=== PATIENT | female | born 1975 | race Caucasian/White ===

== ENCOUNTER → 2019-11-17 | Day surgery (SDC) | payer BC ==
[2019-11-15 09:18] VITALS: BMI 31.5
[~2019-11-17] MED LIST: BUPIVACAINE HCL/PF 0.5% (5MG/ML) 10 ML VIAL IJ ONE; DEXAMETHASONE SOD PHOSPHATE 4 MG/1 ML VIAL ONE; GLYCOPYRROLATE 0.2 MG/1 ML VIAL ONE; KETOROLAC TROMETHAMINE 30 MG/1 ML VIAL ONE; MIDAZOLAM HCL 2 MG/2 ML SINGLE DOSE VIAL ONE; NEOSTIGMINE METHYLSULFATE 0.5 MG/ML - 10 ML MDV ONE; ONDANSETRON 4 MG/2 ML VIAL IVPUSH PRN; PROMETHAZINE HCL 25 MG/1 ML VIAL IVPB PRN; PROPOFOL 20 ML ONE; ROCURONIUM BROMIDE 50 MG/5 ML SYRINGE ONE; oxyCODONE HCL 5 MG TABLET PO PRN
--- NOTE | 2019-11-17 13:45 | HP ---
Admitting History and Physical - Admission Chief Complaint: Desires permanent sterilization, DUB History of Present Illness: 44yo here for LSC b/l salpingectomy, DUB Notes regular cycles but heavy for 1-2 days. Declined LARCs; certain she would like permanent sterilization and no further childbearing. 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: Alzheimer's, CVA, Dementia, Migraine, Multiple Sclerosis, Peripheral Neuropathy, Parkinson's, Seizure, Syncope, TIA, Vertigo, Other Cardiovascular: No: AFIB, Aneurysm, Aortic Insufficiency, Aortic Stenosis, CAD, CHF, Deep Vein Thrombosis, HTN, Hyperlipdemia, PA, Mitral Insufficiency, Mitral Stenosis, Murmur, Pulmonary Hypertension, Other Pulmonary: No: Asthma, Bronchitis, Cancer, COPD, O2 Dependent, Pneumonia, Previously Intubated, Pulmonary Embolus, Pulmonary Fibrosis, Sleep Apnea, Other Gastrointestinal: No: Ascites, Cancer, Constipation, Crohn's Disease, Diverticulitis, Diverticulosis, Esophageal Varices, Gastritis, GERD, GI Bleed, Hemorrhoids, Hiatal Hernia, Inflamatory Bowel Disease, Irritable Bowel Disease, Pancreatitis, Peptic Ulcer Disease, Ulcerative Colitis, Other Hepatobiliary: No: Cirrhosis, Cholelithiasis, Cholecystitis, Choledocholithiasis , Hepatitis A, Hepatitis B, Hepatitis C, Other Reproductive: No: Ectopic , Endometriosis, Fibroids, PID, Polycystic Ovary Syndrome, Postmenopausal, Other ...LMP: 11/09/19 ...: No Heme/Onc: No: Anemia, B12 Deficiency, Bleeding Disorder, Cancer, Current Chemotherapy, Current Radiation Therapy, Hemochromatosis, Hypercoaguable State, Myeloproliferative Synd, Sickle Cell Disease, Sickle Cell Trait, Thrombocytopenia, Other Infectious Disease: No: AIDS, C-Diff, Herpes Zoster, HIV, MRSA, STD's, Tuberculosis, VREF, Other Psych: No: Addictions, Anxiety, Bipolar, Depression, Panic, Psychosis, Schizophrenia, Other Musculoskeletal: No: Bursitis, Chronic low back pain, Hemiparesis, Hemiplegia, Osteoarthritis, Paraplegia, Other - Past Surgical History Past Surgical History: Yes: None - Smoking History Smoking history: Never smoked - Alcohol/Substance Use Hx Alcohol Use: No Home Medications - Allergies Allergies/Adverse Reactions: Allergies Allergy/AdvReac Type Severity Reaction Status Date / Time No Known Allergies Allergy Verified 11/17/19 12:07 - Home Medications Home Medications: Ambulatory Orders Ibuprofen 600 mg PO Q6H PRN #30 tablet 11/17/19 Review of Systems - Review of Systems Constitutional: denies: No Symptoms, Chills, Diaphoresis, Fever, Lethargy, Loss of Appetite, Malaise, Night Sweats, Unintentional Wgt. Loss, Weakness, Other Cardiovascular: denies: No Symptoms, Chest Pain, Edema, Palpitations, Shortness of Breath, Other Respiratory: denies: No Symptoms, Cough, Exercise Intolerance, Hemoptysis, Orthopnea, PND, Snoring, SOB, SOB on Exertion, Wheezing, Other Physical Examination Vital Signs: Vital Signs Temperature 98.6 F 11/17/19 12:30 Pulse Rate 74 11/17/19 12:30 Respiratory Rate 16 11/17/19 12:30 Blood Pressure 109/70 11/17/19 12:30 O2 Sat by Pulse Oximetry (%) 98 11/17/19 12:30 Constitutional: Yes: Well Nourished, No Distress, Calm Eyes: Yes: WNL, Conjunctiva Clear, EOM Intact HENT: Yes: WNL, Atraumatic, Normocephalic Neck: Yes: WNL, Supple, Trachea Midline Cardiovascular: Yes: WNL, Regular Rate and Rhythm Respiratory: Yes: WNL, Regular, CTA Bilaterally Gastrointestinal: Yes: WNL, Normal Bowel Sounds Musculoskeletal: Yes: WNL Extremities: Yes: WNL Edema: No Integumentary: Yes: WNL Neurological: Yes: WNL, Alert, Oriented ...Motor Strength: WNL Psychiatric: Yes: WNL Problem List - Problems (1) Sterilization Code(s): Z30.2 - ENCOUNTER FOR STERILIZATION (2) DUB (dysfunctional uterine bleeding) Code(s): N93.8 - OTHER SPECIFIED ABNORMAL UTERINE AND VAGINAL BLEEDING Assessment/Plan 44yo here for LSC b/l salpingectomy for sterilization, D&C hysteroscopy for DUB NPO, IVFS Risks and alternatives reviewed again with patient- including bleeding, infection and injury to bladder/bowel/adnexa/vessels/nerves; declined LARCs. Leyda Hutchinson All questions answered; consents signed Proceed to OR Lino Damian MD
--- NOTE | 2019-11-17 15:03 | OP ---
Operative Note - Note: Operative Date: 11/17/19 Pre-Operative Diagnosis: Desires Permanent Sterilization, Dysfunctional Uterine Bleeding Operation: Laparoscopic Bilateral Salpingectomy, Diagnostic Hysteroscopy, Dilation & Curettage Findings: Normal Uterus, normal tubes and ovaries, fluffy endometrium no masses within the endometrial cavity Post-Operative Diagnosis: Same as Pre-op Surgeon: Malinda Damian Materials Intern: Zuly Orozco Anesthesia: General Estimated Blood Loss (mls): 25 Drains, Volume Out (mls): 600 (clear urine) Operative Report Dictated: Yes
[2019-11-17 18:15] VITALS: BP 109/67; PULSE 83; TEMP 97.6
--- NOTE | 2019-11-17 20:19 | OP ---
DATE OF OPERATION: 11/17/2019 PREOPERATIVE DIAGNOSIS: Desires permanent sterilization, dysfunctional uterine bleeding. POSTOPERATIVE DIAGNOSIS: Desires permanent sterilization, dysfunctional uterine bleeding. PROCEDURE: Laparoscopic bilateral salpingectomy. Diagnostic hysteroscopy. Dilation and curettage. ANESTHESIA: General. INTRAVENOUS FLUIDS: Per anesthesia record. ESTIMATED BLOOD LOSS: 25. URINE OUTPUT: 600 mL of clear urine. SURGEON: Malinda Damian MD. PHYSIOTHERAPY AIDE: RASHIDA Fay. FINDINGS: Normal uterus, normal tubes, normal ovaries. Fluffy endometrium. No masses within the endometrial canal. COMPLICATIONS: None. CONDITION: Stable to recovery room. DESCRIPTION OF PROCEDURE: After appropriate consents were signed, patient was taken to the operating room. General anesthesia was administered. She was placed in the dorsal lithotomy position. The abdomen and vaginal field were prepped and draped in the normal sterile fashion. Sterile Hutchinson catheter was inserted into the bladder. Timeout was performed confirming correct patient and procedure. The umbilicus was injected with Marcaine. A 15-blade was used to make an incision to accommodate the 5-mm laparoscope, which was introduced under direct visualization without difficulty. The abdomen was insufflated with gas. The patient was placed in Trendelenburg position. A right lower quadrant and a left lower quadrant 5-mm ports were inserted under direct visualization without difficulty. Patient's fallopian tubes were grasped, tented upwards, identified out to the fimbriated edges and noted to be normal. Using the LigaSure, the fallopian tubes were ligated along the mesosalpinx. Next the tube was all the way to its insertion to the uterus, where it was transected with a LigaSure without difficulty. The bite sites were noted to be hemostatic. The contralateral fallopian tube which was ligated in a similar fashion with the LigaSure device without difficulty. Some sites were also noted to be hemostatic. The right lower quadrant, left lower quadrant ports were removed under visualization without difficulty. The umbilical port was removed without difficulty. Attention was then paid to the diagnostic hysteroscopy. A sterile speculum was inserted into the vagina with good visualization of the cervix. The anterior lip of the cervix was grasped with a single-toothed tenaculum. Uterus was sounded, noted to be 9 cm. Using the Camara dilators, the internal os was dilated to accommodate the 5-mm scope, which was introduced under fluid distention. The endometrial cavity was distended. The endometrial cavity was noted to be without any masses, however fluffy endometrium was noted diffusely. Hysteroscope was then removed. Gentle curettage was done in all 4 quadrants until a gritty texture was noted. Specimen sent off for pathology. The anterior lip of the cervix was released from the tenaculum. Dissection noted to be hemostatic until bleeding was noted. Speculum was removed. All sponge, lap, needle counts were correct. Patient did not receive any antibiotics at the start of the procedure. She was taken from the operating room to the recovery room in stable condition. MD KACY ALMANZA/[id number] MTDD
--- NOTE | 2019-11-19 16:20 | PATH ---
Surgical Pathology Report Patient Name: ARISTIDES WINTER [facility]. Rec. #: [id number] /Age/Gender: 1975 (Age: 44) / F Account: [id number] Location: [facility] Taken: 11/17/2019 Received: 11/18/2019 Reported: 11/19/2019 Physicians: Malinda Damian Specimen(s) Received A: RIGHT FALLOPIAN TUBE B: LEFT FALLOPIAN TUBE C: ENDOMETRIAL CURETTINGS Clinical History Desires sterilization, dysfunctional uterine bleeding Final Diagnosis A. RIGHT FALLOPIAN TUBE, SALPINGECTOMY: PORTION OF FALLOPIAN TUBE WITH PARATUBAL CYST AND ENDOSALPINGIOSIS. COMPLETE CROSS SECTION OF FALLOPIAN TUBE LUMEN IDENTIFIED. B. LEFT FALLOPIAN TUBE, SALPINGECTOMY: PORTION OF FALLOPIAN TUBE WITH ENDOSALPINGIOSIS. COMPLETE CROSS SECTION OF FALLOPIAN TUBE LUMEN IDENTIFIED. C. ENDOMETRIAL CURETTINGS: MIXED SECRETORY AND PROLIFERATIVE TYPE ENDOMETRIUM. SEPARATE FRAGMENTS OF ENDOCERVICAL TISSUE WITH NO SIGNIFICANT PATHOLOGIC CHANGE. Electronically Signed George Azevedo M.D. Gross Description A. Received in formalin labeled "right tube," is a 4.5 cm in length fimbriated portion of fallopian tube. The outer surface is frazier purple and smooth with a focal 0.9 cm in greatest dimension paratubal cyst attached. Sectioning reveals an unremarkable fallopian tube lumen. Hot Billet She[employer] Operator sections are submitted in 2 cassettes as follows: 1-fimbria; 2-cross sections of fallopian tube with paratubal cyst. B. Received in formalin labeled "left tube," is a 5 cm in length fimbriated fallopian tube. The outer surface is frazier purple and smooth. Sectioning reveals an unremarkable fallopian tube lumen. Hot Billet Shear Operator sections are submitted in 2 cassettes as follows: 1-fimbria; 2-cross sections of fallopian tube. C. Received in formalin labeled "endometrial curettings," is a 3.5 x 3.0 x 0.4 cm aggregate of lima-brown soft tissue fragments. The formalin is filtered and the specimen is entirely submitted in 2 cassettes. 11/18/2019 [facility]11/18/2019
== END | disposition home or self-care (01) ==
LOC: JASU-SURG 04:38
PROVIDERS: ATTEND Obstetrics & Gynecology
PROC: 0U574ZZ Destruction of Bilateral Fallopian Tubes, Percutaneous Endoscopic Approach (ICD-10-PCS; principal; 2019-11-17 14:00)
PROC: 0UDB7ZX Extraction of Endometrium, Via Natural or Artificial Opening, Diagnostic (ICD-10-PCS; 2019-11-17 14:00)
PROC: 0UJD8ZZ Inspection of Uterus and Cervix, Via Natural or Artificial Opening Endoscopic (ICD-10-PCS; 2019-11-17 14:00)
DX: Z30.2 Encounter for sterilization (principal); N93.9 Abnormal uterine and vaginal bleeding, unspecified
CPT/HCPCS: 86922; 88302-TC; 88305-TC; 94760